=== PATIENT | female | born 1995 | race African-American/Black ===

== ENCOUNTER 2016-05-29 23:39 | Emergency (ER) | payer BC, MEDICAID ==
[2016-05-30] MEDS ORDERED: oxyCODONE/Acetamin 5/325 MG* TAB PO ONE (00:10)
[2016-05-30] MEDS ORDERED: Clindamycin 900 MG/D5W BAG(*) 50 ML IVPB ONE (00:10)
[2016-05-30 00:23] VITALS: BP 131/87
[2016-05-30 00:52] LABS: Hematocrit 44 % (35-47); Hemoglobin 14.7 g/dl (12.0-16.0); Mean Corpuscular HGB Conc 33 g/dl (31-36); Mean Corpuscular Hemoglobin 30 pg (27-31); Mean Corpuscular Volume 90 fL (80-97); Mean Platelet Volume 9 um3 (7.4-10.4); Red Blood Count 4.95 10^6/ul (4.0-5.4); Red Cell Distribution Width 15 % (10.5-15); White Blood Count 13.7 10^3/ul (3.5-10.8)
[2016-05-30 01:04] LABS: BUN/Creatinine Ratio 17.1 (8-20); Calcium 9.4 mg/dL (8.6-10.3); EGFR African American 112.1 (>60); EGFR Non-African American 87.2 (>60); Globulin 2.9 g/dL (2-4); Total Bilirubin 0.3 mg/dL (0.2-1.0); Total Protein 6.9 g/dL (6.4-8.9)
[2016-05-30] MEDS ORDERED: NS 0.9% 1000 ML* 1,000 ML IV ONE (01:13)
[2016-05-30] MEDS: oxyCODONE/Acetamin 5/325 MG* TAB PO ONE ×2 (01:51→02:09)
[2016-05-30] MEDS: Clindamycin CAP* 150 MG PO ONE ×2 (01:51→02:09)
--- NOTE | 2016-05-30 06:32 | ED ---
Daniella Schmitt Michael, scribed for Cristino Palencia MD on 05/30/16 at 0016 . Complex/Multi-Sys Presentation - HPI Summary HPI Summary: 20 y/o female was BIBA to the ED for possible medication reaction resulting in a panic attack. The pt reports that she took 4 Naproxen at 2230 and called [facility] because of possible reaction from the Naproxen with her depression medication. She was told to contact poison control but was unable to contact them, so she came to the ED. The pt also c/o dental pain on the number one tooth for the past 2 months. The dental pain is described as pressure and radiates to the right side of her face and head. She has been unable to schedule an appointment with her dentist. The PMHx is significant for depression. Her LNMP started on . IF THERE IS ONE, PLEASE SEE DICTATION BY DR. PALENCIA FOR FURTHER INFORMATION - History Of Current Complaint Time Seen by Provider: 05/29/16 23:54 Hx Obtained From: Patient, EMS, Medical Records Onset/Duration: Sudden Onset, Lasting Weeks - 2 months, Still Present Timing: Constant Severity Currently: Moderate Severity Initially: Moderate Location: Pain At: - 1st tooth Character: Pressure Associated Signs And Symptoms: Positive: Other - dental pain.. Negative: Fever - Allergies/Home Medications Allergies/Adverse Reactions: Allergies Allergy/AdvReac Type Severity Reaction Status Date / Time Gabapentin Allergy Intermediate Rash Verified 05/30/16 00:21 SEASONAL Allergy Mild Congestion Uncoded 05/30/16 00:21 PMH/Surg Hx/FS Hx/Imm Hx Endocrine/Hematology History: Denies: Hx Anticoagulant Therapy, Hx Diabetes, Hx Thyroid Disease Cardiovascular History: Denies: Hx Congestive Heart Failure, Hx Hypertension Respiratory History: Denies: Hx Asthma, Hx Chronic Bronchitis, Hx Chronic Obstructive Pulmonary Disease (COPD), Hx Pneumonia GI History: Denies: Hx Ulcer History: Denies: Hx Dialysis, Hx Renal Disease Musculoskeletal History: Reports: Hx Bursitis - right shoulder Psychiatric History: Reports: Hx Depression, Hx Post Traumatic Stress Disorder, Hx Bipolar Disorder, Hx Suicide Attempt - Cancer History Cancer Type, Location and Year: abnormal pap in past - Surgical History Surgery Procedure, Year, and Place: C SECTION September 2011 Hx Anesthesia Reactions: No Infectious Disease History: Denies: Hx Hepatitis, Hx Human Immunodeficiency Virus (HIV), History Other Infectious Disease, Traveled Outside the [place] in Last 30 Days - Family History Known Family History: Positive: Hypertension, Diabetes - Social History Occupation: Unemployed Lives: With Family Alcohol Use: Weekly Alcohol Amount: 3 beers 3x per week Substance Use Type: Reports: Prescribed Substance Use Comment - Amount & Last Used: took 10-100mg tabs seroquel Smoking Status (MU): Current Every Day Smoker Type: Cigarettes Amount Used/How Often: 1/2 ppd Review of Systems Negative: Fever Positive: Dental Pain All Other Systems Reviewed And Are Negative: Yes Physical Exam - Summary Physical Exam Summary: GENERAL EXAM GENERAL: Awake, alert, oriented, no acute distress, very pleasant HEENT: Head is normocephalipolc, atraumatic, anicteric sclera, clear conjunctiva , mucous membranes moist, no erythema, no discharge, no lesions, neck is supple , trachea is midline, no JVD CARDIAC: Regular rate and rhythm, S1, S2, no rub, no murmur, no gallop, 2+ radial and pedal pulses bilaterally RESPIRATORY: Clear to auscultation bilaterally with no rales, rhonchi, or wheezes, non-tender ABDOMEN: Bowel sounds positive, no bruit, soft, non-tender, no CVA tenderness EXTREMITIES: No edema, warm, dry, moving all extremities in a grossly normal manner NEUROLOGICAL: Mood is appropriate, moving all extremities in a grossly normal manner DENTAL: number one tooth fracture. unable to determine severity of fracture Triage Information Reviewed: Yes Vital Signs Reviewed: Yes Diagnostics - Laboratory Result Diagrams: 05/30/16 00:35 05/30/16 00:35 Lab Statement: Any lab studies that have been ordered have been reviewed, and results considered in the medical decision making process. Complex Multi-Symp Course/Dx - Diagnoses Provider Diagnoses: dental pain-with fracture number 1 tooth Discharge - Discharge Plan Condition: Stable Disposition: HOME Prescriptions: Clindamycin CAP* [Cleocin 150 MG CAP*] 300 mg PO QID #40 cap oxyCODONE/Acetamin 5/325 MG* [Percocet 5/325 TAB*] 1 tab PO Q4H PRN #15 tab MDD 4 PRN Reason: Pain Patient Education Materials: Toothache (ED) Referrals: Linda Blanc MD [Primary Care Provider] - Additional Instructions: You will follow up with your dentist within the next 2 days. PLEASE RETURN TO THE EMERGENCY DEPARTMENT FOR NAUSEA, VOMITING, FEVER, PHOTOPHOBIA, CHEST PAIN, OR IF SYMPTOMS WORSEN. The documentation as recorded by the Daniella jeffries Michael accurately reflects the service I personally performed and the decisions made by me, Crisitno Palencia MD.
== END 2016-05-30 02:10 | disposition home or self-care (01) ==
LOC: ED 23:39
DX: F41.0 Panic disorder [episodic paroxysmal anxiety] (principal); K08.89 Other specified disorders of teeth and supporting structures; F17.210 Nicotine dependence, cigarettes, uncomplicated; K03.81 Cracked tooth
CPT/HCPCS: 36415; 80053; 85025; 96365; 99283; A9270-GY

== ENCOUNTER 2017-01-15 10:47 | Emergency (ER) | payer BC, MEDICAID ==
[2017-01-15] MEDS ORDERED: Ketorolac INJ* 30 MG/ML 1 ML VIAL IV ONE (12:10)
[2017-01-15] MEDS ORDERED: NS 0.9% 1000 ML* 1,000 ML IV ONE (12:10)
[2017-01-15 13:11] LABS: Hematocrit 49 % (35-47); Mean Corpuscular HGB Conc 34 g/dl (31-36); Mean Corpuscular Hemoglobin 32 pg (27-31); Mean Corpuscular Volume 93 fL (80-97); Mean Platelet Volume 8 um3 (7.4-10.4); Red Blood Count 5.34 10^6/ul (4.0-5.4); Red Cell Distribution Width 15 % (10.5-15); White Blood Count 10.6 10^3/ul (3.5-10.8)
--- NOTE | 2017-01-15 13:16 | RAD ---
Indication: Ovarian cysts. Real-time sonography of the pelvis was performed. The uterus measures 7.1 x 3.1 x 4.2 cm. Endometrial echo measures 2 mm. The right ovary measures 3.4 x 1.7 x 2.9 cm. The left ovary measures 3.5 x 1.7 x 2.9 cm. No adnexal masses are noted. IMPRESSION: Unremarkable pelvic ultrasound.
[2017-01-15 13:25] LABS: ALT 18 U/L (7-52); AST 19 U/L (13-39); Albumin 4.1 g/dL (3.2-5.2); Alkaline Phosphatase 79 U/L (34-104); Anion Gap 8 mmol/L (2-11); BUN/Creatinine Ratio 8.6 (8-20); Blood Urea Nitrogen 6 mg/dL (6-24); C Reactive Protein 10.05 mg/L (< 5.00); CO2 Carbon Dioxide 26 mmol/L (22-32); Calcium 9.4 mg/dL (8.6-10.3); Chloride 105 mmol/L (101-111); EGFR African American 133.4 (>60); EGFR Non-African American 103.7 (>60); Globulin 2.9 g/dL (2-4); Glucose 99 mg/dL (70-100); Potassium 3.7 mmol/L (3.5-5.0); Sodium 139 mmol/L (133-145)
[2017-01-15 14:46] LABS: Urine Bacteria Absent (Absent); Urine Bilirubin Negative (Negative); Urine Glucose Negative (Negative); Urine Nitrite Negative (Negative)
[2017-01-15 15:19] VITALS: BP 119/73
--- NOTE | 2017-02-01 02:49 | ED ---
Odell Schmitt Thomas, scribed for Nikkie Ryan MD on 01/15/17 at 1204 . Complex/Multi-Sys Presentation - HPI Summary HPI Summary: The pt is a 21 y/o F presenting to the ED with concerns that her control implant in her left arm has broken. She believes that the implant is broken because it no longer feels as it did when it was implanted in 12/2015. She has not had a period in 3-4 months and before then she had intermittent vaginal bleeding. She also complaints of abdominal pain described as cramping that began a month ago. She has this cramping in the ED. The pain is greater in the RLQ and it is described as pressure in the LLQ. The pain has been intermittent since onset; however, it became constant and worsened four days ago. The patient reports that she felt a big huge pop a few days ago. The pain is rated 8/10. The pain is aggravated and alleviated by nothing. The patient has treated the pain with nothing prior to arrival. Pt additionally c/o a burning sensation in her right arm (onset a month ago), parasthesias in her right arm, vaginal bleeding (none in the ED although some five months ago, which was concurrent with an episode of abdominal cramping). She denies N/V/D. She has not done any home tests. She says that she has been having intercourse and that she could be . PMHx: ovarian cysts. PSHx: C- section. SHx: smoking, weekly alcohol use. FHx: DM, HTN. G=1, P=1 (via C- Section 5 years ago). - History Of Current Complaint Chief Complaint: EDGeneral Hx Obtained From: Patient Onset/Duration: Gradual Onset, Lasting Weeks - one month, Worse Since - 4 days ago Timing: Constant - since 4 days ago, Intermittent, Lasting: - intermittent until 4 days ago Severity Currently: Moderate Severity Initially: Moderate Location: Pain At: - greatest at RLQ and pressure in LLQ Character: Pressure - in LLQ Aggravating Factor(s): nothing Alleviating Factor(s): nothing Associated Signs And Symptoms: Positive: Abdominal Pain - greatest RLQ but also present in LLQ, Other - POS: burning sensation in right arm, vaginal bleeding ( none in ED although some 5 months ago) parasthesias in right arm. Negative: Nausea, Vomiting, Diarrhea, Fever Related History: Similar Episode/Diagnosed As: - ovarian cysts - Allergies/Home Medications Allergies/Adverse Reactions: Allergies Allergy/AdvReac Type Severity Reaction Status Date / Time Gabapentin Allergy Intermediate Rash Verified 05/30/16 00:21 SEASONAL Allergy Mild Congestion Uncoded 05/30/16 00:21 PMH/Surg Hx/FS Hx/Imm Hx Previously Healthy: No Endocrine/Hematology History: Denies: Hx Anticoagulant Therapy, Hx Diabetes, Hx Thyroid Disease Cardiovascular History: Denies: Hx Congestive Heart Failure, Hx Hypertension Respiratory History: Denies: Hx Asthma, Hx Chronic Bronchitis, Hx Chronic Obstructive Pulmonary Disease (COPD), Hx Pneumonia GI History: Denies: Hx Ulcer History: Reports: Other Problems/Disorders - Hx ovarian cyst Denies: Hx Dialysis, Hx Renal Disease Musculoskeletal History: Reports: Hx Bursitis - right shoulder Psychiatric History: Reports: Hx Depression, Hx Post Traumatic Stress Disorder, Hx Bipolar Disorder, Hx Suicide Attempt - Cancer History Cancer Type, Location and Year: abnormal pap in past - Surgical History Surgery Procedure, Year, and Place: C SECTION September 2011 Hx Anesthesia Reactions: No - Immunization History Date of Tetanus Vaccine: unk Date of Influenza Vaccine: unk Infectious Disease History: Denies: Hx Hepatitis, Hx Human Immunodeficiency Virus (HIV), History Other Infectious Disease, Traveled Outside the [place] in Last 30 Days - Family History Known Family History: Positive: Hypertension, Diabetes - Social History Alcohol Use: Weekly Alcohol Amount: 3 beers 3x per week Substance Use Type: Reports: None Smoking Status (MU): Current Every Day Smoker Type: Cigarettes Amount Used/How Often: 1/2 ppd Review of Systems Negative: Fever Cardiovascular: Negative Respiratory: Negative Positive: Abdominal Pain - described as cramping, onset a month ago but worse 4 days ago, worst in RLQ but also a pressure in the LLQ. Negative: Vomiting, Diarrhea, Nausea Positive: other - POS: intermittent vaginal bleeding (none in the ED although some 5 months ago). Negative: burning Positive: Other - POS: concerns that control implant is broken, in her left arm Neurological: Other - POS: burning sensation in right arm (onset a month ago) Positive: Paresthesia - in right arm (onset a month ago) Psychological: Normal All Other Systems Reviewed And Are Negative: Yes Physical Exam Triage Information Reviewed: Yes Vital Signs On Initial Exam: Initial Vitals Temp Pulse Resp BP Pulse Ox 98.5 F 94 18 144/82 99 01/15/17 10:49 01/15/17 10:49 01/15/17 10:49 01/15/17 10:49 01/15/17 10:49 Vital Signs Reviewed: Yes Appearance: Positive: Well-Appearing, Well-Nourished, Pain Distress - 8/10 pain Skin: Positive: Warm, Skin Color Reflects Adequate Perfusion Head/Face: Positive: Normal Head/Face Inspection Eyes: Positive: Conjunctiva Clear ENT: Positive: Normal ENT inspection Neck: Positive: Supple Respiratory/Lung Sounds: Positive: Clear to Auscultation, Breath Sounds Present , Other - No respiratory distress Cardiovascular: Positive: RRR, Pulses are Symmetrical in both Upper and Lower Extremities, Other - Brisk cap refill. Negative: Murmur Abdomen Description: Positive: Nontender, No Organomegaly, Soft. Negative: Bruit, CVA Tenderness (R), CVA Tenderness (L), Distended, Guarding, Hepatomegaly , McBurney's Point Tenderness, Peritoneal Signs, Pulsatile Mass, Splenomegaly Bowel Sounds: Positive: Present Pelvic Exam: Positive: other - pt declines pelvic exam Musculoskeletal: Positive: Strength/ROM Intact Neurological: Positive: Sensory/Motor Intact, Alert, Oriented to Person Place, Time, Facial Symmetry, Speech Normal Psychiatric: Positive: Normal Diagnostics - Vital Signs Vital Signs Temp Pulse Resp BP Pulse Ox 01/15/17 10:49 98.5 F 94 18 144/82 99 - Laboratory Lab Results: Lab Results 01/15/17 01/15/17 01/15/17 Range/Units 12:58 12:58 12:58 WBC 10.6 (3.5-10.8) 10^3/ul RBC 5.34 (4.0-5.4) 10^6/ul Hgb 17.0 H (12.0-16.0) g/dl Hct 49 H (35-47) % MCV 93 (80-97) fL MCH 32 H (27-31) pg MCHC 34 (31-36) g/dl RDW 15 (10.5-15) % Plt Count 260 (150-450) 10^3/ul MPV 8 (7.4-10.4) um3 Neut % (Auto) 76.7 (38-83) % Lymph % (Auto) 15.7 L (25-47) % [place] % (Auto) 6.3 (1-9) % Eos % (Auto) 0.9 (0-6) % Baso % (Auto) 0.4 (0-2) % Absolute Neuts (auto) 8.2 H (1.5-7.7) 10^3/ul Absolute Lymphs (auto) 1.7 (1.0-4.8) 10^3/ul Absolute Monos (auto) 0.7 (0-0.8) 10^3/ul Absolute Eos (auto) 0.1 (0-0.6) 10^3/ul Absolute Basos (auto) 0 (0-0.2) 10^3/ul Absolute Nucleated RBC 0.01 10^3/ul Nucleated RBC % 0.1 Sodium 139 (133-145) mmol/L Potassium 3.7 (3.5-5.0) mmol/L Chloride 105 (101-111) mmol/L Carbon Dioxide 26 (22-32) mmol/L Anion Gap 8 (2-11) mmol/L BUN 6 (6-24) mg/dL Creatinine 0.70 (0.51-0.95) mg/dL Est GFR ( Amer) 133.4 (>60) Est GFR (Non-Af Amer) 103.7 (>60) BUN/Creatinine Ratio 8.6 (8-20) Glucose 99 (70-100) mg/dL Lactic Acid 1.2 (0.5-2.0) mmol/L Calcium 9.4 (8.6-10.3) mg/dL Total Bilirubin 0.80 (0.2-1.0) mg/dL AST 19 (13-39) U/L ALT 18 (7-52) U/L Alkaline Phosphatase 79 (34-104) U/L C-Reactive Protein 10.05 H (< 5.00) mg/L Total Protein 7.0 (6.4-8.9) g/dL Albumin 4.1 (3.2-5.2) g/dL Globulin 2.9 (2-4) g/dL Albumin/Globulin Ratio 1.4 (1-3) Beta HCG, Quant < 0.60 mIU/mL Result Diagrams: 01/15/17 12:58 01/15/17 12:58 Lab Statement: Any lab studies that have been ordered have been reviewed, and results considered in the medical decision making process. - Additional Comments Diagnostic Additional Comments: US Transvaginal. Interpreted by Radiologist. Impression: unremarkable pelvic ultrasound. ED physician has reviewed this radiology report and agrees. Re-Evaluation - Re-Evaluation First Eval Re-Evaluation Time: 14:20 Change: Improved - pain is a 2 or 3 after toradol IV. discussed lab and US results. IV x 1 liter infused. Pt ambulatory to the BR without assistance. Second Eval Re-Evaluation Time: 14:59 Change: Improved Comment: Patient has 0/10 pain and she denies vaginal bleeding Complex Multi-Symp Course/Dx Assessment/Plan: The patient presents with concerns that her control implant has become dislodged as well as abdominal cramping greatest in RLQ but also in her LLQ. She also complaints of a burning sensation in her right arm, parasthesias in her right arm, and vaginal bleeding 5 months ago. G=1, P=1. In the ED course the patient was given IV fluids and Toradol. Bloodwork shows Hgb 17, Hct 48, CRP 10.05. UA shows 1+ ketones, 1+ blood, trace leukocyte esterase, and 1+ squamous cells. US Transvaginal reveals unremarkable pelvic ultrasound. ED physician has reviewed this radiology report and agrees. At re-evaluation, patient has 0/10 pain and she denies vaginal bleeding. The patient was diagnosed with abdominal pain. The patient will be discharged home with follow up PCP and ANDREINA Shaikh. Pt is agreeable with this plan. - Diagnoses Differential Diagnoses/HQI/PQRI: Metabolic Abnormality, Urinary Tract Infection , Other - ovarian cyst Provider Diagnoses: Abdominal pain, Paresthesia of right arm Is Visit Related: No - pt concerned about the control implant in her left arm - Physician Notifications Discussed Care Of Patient With: Isidoro Garcia Time Discussed With Above Provider: 13:49 Instructed by Provider To: Other - We discussed patient care. He will see the patient at a follow up at his office. Discharge - Discharge Plan Condition: Stable Disposition: HOME Patient Education Materials: Abdominal Pain (ED) Referrals: Isaías Garcia MD [Medical Doctor] - 1 Week Linda Blanc MD [Primary Care Provider] - Additional Instructions: We have talked with Dr. Garcia about your implant in your left arm. He states that this can be removed by them. Please call his office to schedule an appointment for this and for further evaluation of your abdominal cramping and your history of ovarian cysts. We have sent your urine for a culture. We will notify you if you need further treatment based on those results. Return to the ER if you have new or worsening symptoms. The documentation as recorded by the Odell jeffries Thomas accurately reflects the service I personally performed and the decisions made by me, Nikkie Ryan MD.
== END 2017-01-15 15:31 | disposition home or self-care (01) ==
LOC: ED 10:47
DX: R10.31 Right lower quadrant pain (principal); F17.210 Nicotine dependence, cigarettes, uncomplicated; R20.9 Unspecified disturbances of skin sensation
CPT/HCPCS: 36415; 76830; 80053; 81003; 81015; 83605; 84702; 85025; 86140; 87086; 96374; 99282; J1885

== ENCOUNTER 2017-04-27 19:25 | Emergency (ER) | payer BC, MEDICAID ==
[2017-04-27 20:23] LABS: Urine Bacteria Absent (Absent); Urine Bilirubin Negative (Negative); Urine Glucose Negative (Negative); Urine Nitrite Negative (Negative)
[2017-04-27 20:26] LABS: Benzodiazepine Urine Screen None Detected (None Detect)
[2017-04-27 21:03] LABS: Hematocrit 46 % (35-47); Hemoglobin 15.4 g/dl (12.0-16.0); Mean Corpuscular HGB Conc 33 g/dl (31-36); Mean Corpuscular Hemoglobin 31 pg (27-31); Mean Corpuscular Volume 93 fL (80-97); Mean Platelet Volume 8 um3 (7.4-10.4); Red Blood Count 4.97 10^6/ul (4.0-5.4); Red Cell Distribution Width 16 % (10.5-15); White Blood Count 9.9 10^3/ul (3.5-10.8)
[2017-04-27 21:20] LABS: ALT 15 U/L (7-52); AST 17 U/L (13-39); Albumin 4.1 g/dL (3.2-5.2); Alkaline Phosphatase 59 U/L (34-104); Anion Gap 6 mmol/L (2-11); BUN/Creatinine Ratio 15.9 (8-20); Blood Urea Nitrogen 11 mg/dL (6-24); CO2 Carbon Dioxide 25 mmol/L (22-32); Calcium 9.3 mg/dL (8.6-10.3); Chloride 106 mmol/L (101-111); EGFR African American 135.6 (>60); EGFR Non-African American 105.4 (>60); Globulin 2.7 g/dL (2-4); Glucose 92 mg/dL (70-100); Potassium 3.9 mmol/L (3.5-5.0); Sodium 137 mmol/L (133-145); Total Protein 6.8 g/dL (6.4-8.9)
[2017-04-27 21:28] LABS: Acetaminophen < 15 mcg/mL; Alcohol < 10 mg/dL (<10); Salicylate < 2.50 mg/dL (<30)
--- NOTE | 2017-04-27 22:12 | ED ---
Bradford Schmitt Julia, scribed for Alex Landeros MD on 04/27/17 at 2044 . Psychiatric Complaint - HPI Summary HPI Summary: This patient is a 21 year old F presenting to [facility] accompanied by her brother with a chief complaint of "Bipolar symptoms" worse since earlier today. Patient states that she stopped taking her medication about a year ago. She made an appointment with her counselor recently but cannot be seen until June. Patient reports chest pains secondary to anxiety. - History Of Current Complaint Chief Complaint: EDMentalHealth Time Seen by Provider: 04/27/17 20:05 Hx Obtained From: Patient Onset/Duration: Gradual Onset, Still Present, Worse Since Timing: Constant Character: Anxious Related History: Positive For: Prior Psychiatric Issues - Allergies/Home Medications Allergies/Adverse Reactions: Allergies Allergy/AdvReac Type Severity Reaction Status Date / Time Gabapentin Allergy Intermediate Rash Verified 04/27/17 19:36 SEASONAL Allergy Mild Congestion Uncoded 04/27/17 19:36 PMH/Surg Hx/FS Hx/Imm Hx Endocrine/Hematology History: Denies: Hx Anticoagulant Therapy, Hx Diabetes, Hx Thyroid Disease Cardiovascular History: Denies: Hx Congestive Heart Failure, Hx Hypertension Respiratory History: Denies: Hx Asthma, Hx Chronic Bronchitis, Hx Chronic Obstructive Pulmonary Disease (COPD), Hx Pneumonia GI History: Denies: Hx Ulcer History: Reports: Other Problems/Disorders - Hx ovarian cyst Denies: Hx Dialysis, Hx Renal Disease Musculoskeletal History: Reports: Hx Bursitis - right shoulder Psychiatric History: Reports: Hx Depression, Hx Post Traumatic Stress Disorder, Hx Bipolar Disorder, Hx Suicide Attempt - Cancer History Cancer Type, Location and Year: abnormal pap in past - Surgical History Surgery Procedure, Year, and Place: C SECTION September 2011 Hx Anesthesia Reactions: No - Immunization History Date of Tetanus Vaccine: unk Date of Influenza Vaccine: unk Infectious Disease History: No Infectious Disease History: Denies: Hx Hepatitis, Hx Human Immunodeficiency Virus (HIV), History Other Infectious Disease, Traveled Outside the [place] in Last 30 Days - Family History Known Family History: Positive: Hypertension, Diabetes - Social History Alcohol Use: Weekly Alcohol Amount: 3 beers 3x per week Hx Substance Use: No Substance Use Type: Reports: None Substance Use Comment - Amount & Last Used: took 10-100mg tabs seroquel Hx Tobacco Use: Yes Smoking Status (MU): Current Every Day Smoker Type: Cigarettes Amount Used/How Often: 1/2 ppd Review of Systems Negative: Fever Positive: Chest Pain - secondary to stress Psychological: Other - "bipolar sx" Positive: Anxious All Other Systems Reviewed And Are Negative: Yes Physical Exam - Summary Physical Exam Summary: Appearance: The patient is well-nourished in no acute distress and in no acute pain. Skin: The skin is warm and dry and skin color reflects adequate perfusion. HEENT: The head is normocephalic and atraumatic. The pupils are equal and reactive. The conjunctivae are clear and without drainage. Nares are patent and without drainage. Mouth reveals moist mucous membranes and the throat is without erythema and exudate. The external ears are intact. The ear canals are patent and without drainage. The tympanic membranes are intact. Neck: the neck is supple with full range of motion and non-tender. There are no carotid bruits. There is no neck vein distension. Respiratory: Chest is non-tender. Lungs are clear to auscultation and breath sounds are symmetrical and equal. Cardiovascular: Heart is regular rate and rhythm. There is no murmur or rub auscultated. There is no peripheral edema and pulses are symmetrical and equal. Abdomen: The abdomen is soft and non-tender. There are normal bowel sounds heard in all four quadrants and there is no organomegaly palpated. Musculoskeletal: There is no back tenderness noted. Extremities are non-tender with full range of motion. There is good capillary refill. There is no peripheral edema or calf tenderness elicited. Neurological: Patient is alert and oriented to person, place and time. The patient has symmetrical motor strength in all four extremities. Cranial nerves are grossly intact. Deep tendon reflexes are symmetrical and equal in all four extremities. Psychiatric: The patient has an appropriate affect and does not exhibit any anxiety or depression. Triage Information Reviewed: Yes Vital Signs On Initial Exam: Initial Vitals Temp Pulse Resp BP Pulse Ox 98.1 F 97 16 142/99 100 04/27/17 19:30 04/27/17 19:30 04/27/17 19:30 04/27/17 19:30 04/27/17 19:30 Vital Signs Reviewed: Yes Diagnostics - Vital Signs Vital Signs Temp Pulse Resp BP Pulse Ox 04/27/17 19:30 98.1 F 97 16 142/99 100 - Laboratory Lab Results: Lab Results 04/27/17 04/27/17 Range/Units 19:53 19:53 Urine Color Yellow Urine Appearance Clear Urine pH 5.0 (5-9) Ur Specific [place] 1.016 (1.010-1.030) Urine Protein Negative (Negative) Urine Ketones Negative (Negative) Urine Blood 3+ H (Negative) Urine Nitrate Negative (Negative) Urine Bilirubin Negative (Negative) Urine Urobilinogen Negative (Negative) Ur Leukocyte Esterase Trace H (Negative) Urine WBC (Auto) 1+(6-10/hpf) H (Absent) Urine RBC (Auto) 1+(3-5/hpf) H (Absent) Ur Squamous Epith Cells Present H (Absent) Urine Bacteria Absent (Absent) Urine Glucose Negative (Negative) Urine Opiates Screen None detected (None Detect) Ur Barbiturates Screen None detected (None Detect) Ur Phencyclidine Scrn None detected (None Detect) Ur Amphetamines Screen None detected (None Detect) U Benzodiazepines Scrn None detected (None Detect) Urine Cocaine Screen None detected (None Detect) U Cannabinoids Screen Presumptive positive H (None Detect) Result Diagrams: 04/27/17 20:45 04/27/17 20:45 Lab Statement: Any lab studies that have been ordered have been reviewed, and results considered in the medical decision making process. Course/Dx - Course Course Of Treatment: Ms. Selby is here on a voluntary basis for a MHE. She is medically cleared and in the Flex Unit. - Differential Dx/Clinical Impression Provider Diagnosis: Bipolar 1 disorder Discharge - Discharge Plan Condition: Stable Disposition: OTHER Discharge Disposition Comment: Signed out to Dr. Márquez at change of shift Referrals: Linda Blanc MD [Primary Care Provider] - The documentation as recorded by the Bradford jeffries Julia accurately reflects the service I personally performed and the decisions made by , Alex Landeros MD.
[2017-04-27 23:29] VITALS: BP 122/74
--- NOTE | 2017-04-28 04:32 | PN ---
Katerina Schmitt Emily, scribed for Roxana Márquez MD on 04/27/17 at 2314 . Progress Note - Progress Note Date of Service: 04/27/17 Note: SIGN-OFF FROM DR. DE LA TORRE UPON SHIFT CHANGE PENDING MHE DISPO: Pt is stable for discharge home with a prescription for zyprexa and a dx of depression. The documentation as recorded by the scribKaterina stewart Emily accurately reflects the service I personally performed and the decisions made by , Roxana Márquez MD.
== END 2017-04-27 23:25 | disposition home or self-care (01) ==
LOC: ED 19:25
DX: F31.9 Bipolar disorder, unspecified (principal); R07.89 Other chest pain; Z32.02 Encounter for pregnancy test, result negative; Z11.4 Encounter for screening for human immunodeficiency virus [HIV]; F17.210 Nicotine dependence, cigarettes, uncomplicated
CPT/HCPCS: 36415; 80053; 80307; 80320; 80329; 81003; 81015; 84443; 84702; 85025; 86703; 87086; 99283; 99284; G0480

== ENCOUNTER 2017-06-24 10:31 | Emergency (ER) | payer BC, MEDICAID ==
[2017-06-24] MEDS ORDERED: cefTRIAXone(*) 2 GM in NS 0.9% 100 ML* 100 ML IVPB ONE (12:29)
--- NOTE | 2017-06-24 12:29 | UC ---
HPI Febrile Illness - HPI Summary HPI Summary: 21 yo BF c/p moderate to severe sore throat,and B/L back pain that started yesterday AM associated with f/c and now feels worse. Daughter at home was also sick with pharyngitis. Denies dysuria, urinary frequency and urgency but has had suprapubic pain x 1-2 weeks before the back pain started - History of Current Complaint Chief Complaint: UCGeneralIllness Time Seen by Provider: 06/24/17 12:17 Hx Obtained From: Patient Hx Last Menstrual Period: 2 weeks Onset/Duration: Still Present Timing: Constant Initial Severity: Moderate Current Severity: Moderate Pain Intensity: 8 - Allergy/Home Medications Allergies/Adverse Reactions: Allergies Allergy/AdvReac Type Severity Reaction Status Date / Time MS Gabapentin [Gabapentin] Allergy Intermediate Rash Verified 06/24/17 11:01 SEASONAL Allergy Mild Congestion Uncoded 06/24/17 11:01 Home Medications: Home Medications Budesonide/Formote 80/4.5(NF) [Symbicort 80/4.5 (NF)] 2 puff INH DAILY 06/24/17 [History Confirmed 06/24/17] PMH/Surg Hx/FS Hx/Imm Hx - Additional Past Medical History Additional PMH: none Previously Healthy: No Other History Of: Negative For: Anticoagulant Therapy - Surgical History Surgical History: Yes Surgery Procedure, Year, and Place: C SECTION September 2011 - Family History Known Family History: Positive: Unknown, Hypertension, Diabetes - Social History Alcohol Use: Weekly Alcohol Amount: 3 beers 3x per week Substance Use Type: None Substance Use Comment - Amount & Last Used: took 10-100mg tabs seroquel Smoking Status (MU): Light Every Day Tobacco Smoker Type: Cigarettes Amount Used/How Often: 1/2 ppd - Immunization History Most Recent Influenza Vaccination: "a couple years ago". Most Recent Tetanus Shot: utd Most Recent Pneumonia Vaccination: never Review of Systems Constitutional: Fever, Chills, Fatigue Skin: Negative Eyes: Negative Respiratory: Negative Cardiovascular: Negative Gastrointestinal: Negative Genitourinary: Negative Motor: Negative Neurovascular: Negative Musculoskeletal: Other: - LBP Neurological: Negative Psychological: Negative Is Patient Immunocompromised?: Yes All Other Systems Reviewed And Are Negative: Yes Physical Exam Triage Information Reviewed: Yes Appearance: Pain Distress, Obese Vital Signs: Initial Vital Signs Temp 36.9 C 06/24/17 10:54 Pulse 104 06/24/17 10:54 Resp 16 06/24/17 10:54 BP 118/81 06/24/17 10:54 Pulse Ox 100 06/24/17 10:54 Eye Exam: Normal ENT Exam: Normal ENT: Positive: Tonsillar swelling, Tonsillar exudate - with faint exudates B/L Dental Exam: Normal Neck exam: Normal Neck: Positive: 1 Respiratory Exam: Normal Cardiovascular Exam: Normal Abdomen Description: Positive: Soft, CVA Tenderness (R), CVA Tenderness (L) Musculoskeletal Exam: Normal Neurological Exam: Normal Psychological Exam: Normal Skin Exam: Normal Course/Dx - Course Course Of Treatment: rapid strep neg, UA with Blood 1+ and in light of CVA tenderness, will tx with one time dose of IV rocephin and 1 L IVF NS BUT pt refused the intervention due to ride issue, so prescribe PO Bactrim instead and to go to ER if sx worsen - Diagnoses Clinic Provider Diagnoses: Exudative pharyngitis. B/L pyelonephritis. Febrile illness Discharge - Discharge Plan Condition: Stable Disposition: HOME Prescriptions: Sulfamethox/Trimethoprim DS* [Bactrim DS 800/160 TAB*] 1 tab PO BID 10 Days #20 tab Patient Education Materials: Pharyngitis (ED), Kidney Infection (ED) Referrals: No Primary Care Phys,NOPCP [Primary Care Provider] - Additional Instructions: as tolerated, Finish antibiotic course as directed
[2017-06-24] MEDS ORDERED: NS 0.9% 1000 ML* 1,000 ML IV ONE (12:33)
[2017-06-24] MEDS ORDERED: cefTRIAXone VIAL(*) 1,000 MG VIAL ONE (12:36)
[2017-06-24 12:49] VITALS: BP 112/82
== END 2017-06-24 12:52 | disposition home or self-care (01) ==
LOC: UCEAST 10:31
DX: J02.9 Acute pharyngitis, unspecified (principal); I80.8 Phlebitis and thrombophlebitis of other sites; R50.9 Fever, unspecified; F17.210 Nicotine dependence, cigarettes, uncomplicated
CPT/HCPCS: 81003; 81025; 87651; 99212; G0463; J0696

== ENCOUNTER 2017-10-11 08:31 | Emergency (ER) | payer BC, MEDICAID ==
[2017-10-11 08:40] VITALS: BP 120/81
--- NOTE | 2017-10-11 09:48 | UC ---
Marcie Schmitt Gabriel, scribed for Abel Parker MD on 10/11/17 at 0938 . Throat Pain/Nasal Min HPI - HPI Summary HPI Summary: This patient is a 22 year old F presenting [place] [facility] [place] chief complaint of sore throat that began yesterday when she woke up and has gotten worse since then. The patient rates the pain 6/10 in severity. Patient reports neck pain, trouble swallowing, and myalgia. Patient denies urinary symptoms and BM issues. notes: vital signs stable, afebrile, pulse ox 100%; 6/10 throat pain. Visit history: noncontributory to present complaint. History positive for asthma Nurse note: sore throat started yesterday worsening - History of Current Complaint Chief Complaint: UCGeneralIllness Stated Complaint: THROAT PAIN Time Seen by Provider: 10/11/17 09:27 Hx Obtained From: Patient Hx Last Menstrual Period: 10/07/17 Onset/Duration: Still Present Severity: Moderate Pain Intensity: 6 Pain Scale Used: 0-10 Numeric Associated Signs & Symptoms: Positive: Negative, Other - neck pain and trouble swallowing - Allergies/Home Medications Allergies/Adverse Reactions: Allergies Allergy/AdvReac Type Severity Reaction Status Date / Time gabapentin Allergy Rash Verified 10/11/17 08:40 SEASONAL Allergy Mild Congestion Uncoded 06/24/17 11:01 Home Medications: Home Medications Latuda 60 mg PO DAILY 10/11/17 [History Confirmed 10/11/17] PMH/Surg Hx/FS Hx/Imm Hx Respiratory History: Asthma Psychological History: Depression, Bipolar Disorder Other History Of: Negative For: Anticoagulant Therapy - Surgical History Surgical History: Yes Surgery Procedure, Year, and Place: C SECTION September 2011 - Family History Known Family History: Positive: Hypertension, Diabetes Negative: Renal Disease, Respiratory Disease, Seizure Disorder, Blood Disorder - Social History Occupation: Unemployed Alcohol Use: Weekly Alcohol Amount: 3 beers 3x per week Substance Use Type: Marijuana Substance Use Comment - Amount & Last Used: took 10-100mg tabs seroquel Smoking Status (MU): Light Every Day Tobacco Smoker Type: Cigarettes Amount Used/How Often: 1/2 ppd - Immunization History Most Recent Influenza Vaccination: "a couple years ago". Most Recent Tetanus Shot: utd Most Recent Pneumonia Vaccination: never Review of Systems ENT: Sore Throat, Other - trouble swallowing Musculoskeletal: Myalgia, Other: - neck pain All Other Systems Reviewed And Are Negative: Yes - Comments Additional Review of Systems Comments: Positive: sore throat, neck pain, trouble swallowing, and myalgia. Negative: urinary symptoms and BM issues. Physical Exam - Summary Physical Exam Summary: Appearance: The patient is well-appearing, is in no pain distress, and is well- nourished. Eyes: Conjunctiva are clear. ENT: The hearing is grossly normal and the TMs are normal. PHARYNX: ENLARGED TONSILS WITH ERYTHEMA AND MULTIPLE POCKETS OF EXUDATES Neck: The neck is supple and there is BILATERAL ANTERIOR CERVICAL LYMPHADENOPATHY. Respiratory: The chest is nontender. The lungs are clear, there are normal breath sounds, and there is no respiratory distress. Cardiovascular: Heart is regular rate and rhythm. There is no murmur. Abdomen: The abdomen is soft and nontender. There is no organomegaly. Bowel sounds: present Musculoskeletal: Strength is intact. The patient moves all extremities. Neurological: The patient is alert. Psychological: The patient displays age appropriate behavior Skin: Negative for rashes. Triage Information Reviewed: Yes Vital Signs: Initial Vital Signs Temp 98 F 10/11/17 08:37 Pulse 100 10/11/17 08:37 Resp 18 10/11/17 08:37 BP 120/81 10/11/17 08:37 Pulse Ox 100 10/11/17 08:37 Throat Pain/Nasal Course/Dx - Course Course Of Treatment: Sore throat for 24 hours. Rapid strep is positive. Tonsils are swollen. Will treat with penicillin. Medications have been included in the original chart and reviewed - Differential Dx/Diagnosis Differential Diagnosis/HQI/PQRI: Other - viral pharyngitis vs strep throat Provider Diagnoses: strep tonsillitis Discharge - Sign-Out/Discharge Documenting (check all that apply): Discharge/Admit/Transfer - Discharge Plan Condition: Stable Disposition: HOME Prescriptions: Penicillin VK TAB* [Penicillin VK 250 mg Tab*] 500 mg PO BID #20 tab MDD 2 Patient Education Materials: Strep Throat (ED) Referrals: No Primary Care Phys,NOPCP [Primary Care Provider] - Additional Instructions: WE DISCUSSED: 1. You have strep throat. 2. Take penicillin, twice a day for 10 days. 3. USEFUL HOME REMEDIES: WARM WATER GARGLES, WITH TSP OF SALT PER 8 OUNCES OF WATER, GARGLE FOR A FEW SECONDS AND SPIT OUT; GARGLE AND SPIT OUT; EVERY THREE HOURS. AND/OR: WARM WATER OR TEA, HONEY AND LEMON; 2-3 CUPS A DAY. FOR SORE THROAT: KEEP THROAT MOIST WITH LOZENGES; TEA AND HONEY. USE WARM WATER GARGLES 3-4 TIMES A DAY. 4. Recheck at any time for increased pain, temperature difficulty breathing or swallowing. - Billing Disposition and Condition Condition: STABLE Disposition: Home The documentation as recorded by the Marcie jeffries Gabriel accurately reflects the service I personally performed and the decisions made by , Abel Parker MD.
== END 2017-10-11 09:51 | disposition home or self-care (01) ==
LOC: UCEAST 08:31
DX: J03.00 Acute streptococcal tonsillitis, unspecified (principal); J45.909 Unspecified asthma, uncomplicated; M79.1 Myalgia; F17.210 Nicotine dependence, cigarettes, uncomplicated; Z88.8 Allergy status to other drugs, medicaments and biological substances; Z91.09 Other allergy status, other than to drugs and biological substances
CPT/HCPCS: 87651; 99212; G0463

== ENCOUNTER 2018-02-11 18:46 | Emergency (ER) | payer BC ==
[2018-02-11 19:25] VITALS: BP 110/75
[2018-02-11] MEDS ORDERED: Acetaminophen TAB* 325 MG PO ONE (20:42)
--- NOTE | 2018-02-11 21:23 | UC ---
Abdominal Pain Female HPI - HPI Summary HPI Summary: Pt presents wtih 36 hour progressive urinary urgency, back pain R>L and lower abd cramping. No hematuria. Pt reportw thin white vaginal discharge - no itching , odor. Pt states her menses is late (LMP 01/10/2018) - has taken tests which were neg. Pt with h/o pyelo. no h/o STDs, + h/o BV. No diarrhea. No n/v. No cp, sob. no fever, chills. No h/o renal stones. No analgesia taken. Pt states menses cramping usually "worse" Pt's medications reviewed this visit - History of Current Complaint Chief Complaint: UCAbdominalPain Stated Complaint: ABDOMINAL AND BACK PAIN Time Seen by Provider: 02/11/18 20:30 Hx Obtained From: Patient Hx Last Menstrual Period: 01/09/18 ?: No Onset/Duration: Gradual Onset Pain Intensity: 8 Allergies/Adverse Reactions: Allergies Allergy/AdvReac Type Severity Reaction Status Date / Time gabapentin Allergy Rash Verified 02/11/18 19:26 SEASONAL Allergy Mild Congestion Uncoded 06/24/17 11:01 PMH/Surg Hx/FS Hx/Imm Hx Previously Healthy: Yes Other GI/ History: pyelo Other History Of: Negative For: Anticoagulant Therapy - Surgical History Surgical History: Yes Surgery Procedure, Year, and Place: C SECTION September 2011 - Family History Known Family History: Positive: Unknown, Hypertension, Diabetes Negative: Renal Disease, Respiratory Disease, Seizure Disorder, Blood Disorder - Social History Occupation: Employed Part-time Lives: With Family Alcohol Use: Weekly Alcohol Amount: 3 beers 3x per week Substance Use Type: Marijuana Substance Use Comment - Amount & Last Used: daily Smoking Status (MU): Light Every Day Tobacco Smoker Type: Cigarettes Amount Used/How Often: 1/2 ppd - Immunization History Most Recent Influenza Vaccination: "a couple years ago". Most Recent Tetanus Shot: utd Most Recent Pneumonia Vaccination: never Review of Systems Constitutional: Fatigue Genitourinary: Hematuria, Vaginal/Penile Burning, Vaginal/Penile Discharge All Other Systems Reviewed And Are Negative: Yes Physical Exam - Summary Physical Exam Summary: Vital Signs Reviewed: Yes A+Ox3, no distress, easily change position, climb onto exam table Eyes: Conjunctiva Clear, BULMARO. EOM intact and full ENT: Hearing grossly normal TM x 2 clear, mmoist, uvula midline, no exudate, no erythema Neck: Positive: Supple Respiratory: Positive: No respiratory distress, No accessory muscle use + CTA throughout no w/r Cardiovascular: RRR nl s1, s2 no m/r CBT <2 sec abd soft + BS nt/nd no guarding, no distension no CVA Musculoskeletal Exam: MARIE x 4 without difficulty Strength Intact, ROM Intact Neurological: Positive: Alert, + sensation throughout Psychological: Positive: Normal Response To Family Skin: Positive: no rash, no ecchymosis Triage Information Reviewed: Yes Vital Signs: Initial Vital Signs Temp 98.7 F 02/11/18 19:19 Pulse 94 02/11/18 19:19 Resp 12 02/11/18 19:19 BP 110/75 02/11/18 19:19 Pulse Ox 100 02/11/18 19:19 Re-Evaluation - Re-Evaluation First Eval Comment: notified by nurse, pt left. refused to wait to talk with me. took APAP Abd Pain Female Course/Dx - Course Course Of Treatment: Pt with discomfort flank R>L, lower abd and frequency. Pt' s urine with trace blood. neg. pt well appearing with stable VS. will complete pelvic for report of discharge, CT for renal colic, and apap. pt in agreement with plan - Differential Dx/Diagnosis Provider Diagnoses: elopement. abd pain. vaginal discharge Discharge - Sign-Out/Discharge Documenting (check all that apply): Patient Departure All imaging exams completed and their final reports reviewed: No Studies - Discharge Plan Condition: Stable Disposition: ELOPEMENT Referrals: No Primary Care Phys,NOPCP [Primary Care Provider] - - Billing Disposition and Condition Condition: STABLE Disposition: Elopement
== END 2018-02-11 20:47 | disposition home or self-care (01) ==
LOC: UCEAST 18:46
DX: R10.30 Lower abdominal pain, unspecified (principal); N89.8 Other specified noninflammatory disorders of vagina; R31.9 Hematuria, unspecified; M54.9 Dorsalgia, unspecified; F17.210 Nicotine dependence, cigarettes, uncomplicated; R39.15 Urgency of urination; Z91.09 Other allergy status, other than to drugs and biological substances; Z88.8 Allergy status to other drugs, medicaments and biological substances
CPT/HCPCS: 81003; 84702; 99212; A9270-GY; G0463

== ENCOUNTER 2018-10-09 20:12 | Inpatient (IN) | payer BC ==
[2018-10-09] MEDS ORDERED: Charcoal ACTIVATED* 25 GM/120 ML BTL PO ONE (20:21)
--- NOTE | 2018-10-09 20:22 | ED ---
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 Patient took 49 tablets of 25mg hydroxyzine. Patient has not seen psychiatrist in three months, and she has been feeling helpless. Patient has been trying to do well for herself, but andrei feels like she reached the breaking point of not getting any help. Patient took the pills in front of her mom to prove a point. The patient rates the pain 0/10 in severity. Symptoms aggravated by nothing. Symptoms alleviated by nothing. Patient denies N/V. PMHx of anxiety, depression, bipolar. PSHx of . FHx of HTN, DM. Patient drinks alcohol, smokes marijuana tobacco. - History Of Current Complaint Time Seen by Provider: 10/09/18 20:18 Hx Last Menstrual Period: 01/09/18 - Allergies/Home Medications Allergies/Adverse Reactions: Allergies Allergy/AdvReac Type Severity Reaction Status Date / Time gabapentin Allergy Rash Verified 02/11/18 19:26 SEASONAL Allergy Mild Congestion Uncoded 06/24/17 11:01 PMH/Surg Hx/FS Hx/Imm Hx Endocrine/Hematology History: Denies: Hx Anticoagulant Therapy, Hx Diabetes, Hx Thyroid Disease Cardiovascular History: Denies: Hx Congestive Heart Failure, Hx Hypertension Respiratory History: Reports: Hx Asthma Denies: Hx Chronic Bronchitis, Hx Chronic Obstructive Pulmonary Disease (COPD ), Hx Pneumonia GI History: Denies: Hx Ulcer History: Reports: Other Problems/Disorders - Hx ovarian cyst Denies: Hx Dialysis, Hx Renal Disease Musculoskeletal History: Reports: Hx Bursitis - right shoulder Psychiatric History: Reports: Hx Depression, Hx Post Traumatic Stress Disorder, Hx Bipolar Disorder, Hx Suicide Attempt Denies: Hx Eating Disorder, Hx of Violent Episodes Against Others - Cancer History Cancer Type, Location and Year: abnormal pap in past - Surgical History Surgery Procedure, Year, and Place: C SECTION September 2011 Hx Anesthesia Reactions: No - Immunization History Date of Tetanus Vaccine: unk Date of Influenza Vaccine: unk Infectious Disease History: Denies: Hx Hepatitis, Hx Human Immunodeficiency Virus (HIV), History Other Infectious Disease - Family History Known Family History: Positive: Hypertension, Diabetes Negative: Renal Disease, Respiratory Disease, Seizure Disorder, Blood Disorder - Social History Alcohol Use: Weekly Alcohol Amount: 3 beers 3x per week Hx Substance Use: No Substance Use Type: Reports: Marijuana Substance Use Comment - Amount & Last Used: daily Hx Tobacco Use: Yes Smoking Status (MU): Light Every Day Tobacco Smoker Type: Cigarettes Amount Used/How Often: 1/2 ppd Review of Systems Negative: Vomiting, Nausea Positive: Depressed All Other Systems Reviewed And Are Negative: Yes Physical Exam - Summary Physical Exam Summary: Appearance: Well-appearing, Well-nourished, lying in bed comfortably Skin: Warm, dry, no obvious rash Eyes: sclera anicteric, no conjunctival pallor ENT: mucous membranes moist, pharynx appears normal Neck: Supple, nontender Respiratory: Clear to auscultation, no signs of respiratory distress Cardiovascular: Normal S1, S2. No murmurs. Normal distal pulses in tibial and radial bilaterally. Abdomen: Soft, nontender, normal active bowel sounds present Musculoskeletal: Normal, Strength/ROM Intact Neurological: A&Ox3, awake and alert, mentation is normal, speech is fluent and appropriate Psychiatric: affect is depressed, does not appear anxious or depressed Triage Information Reviewed: Yes Vital Signs Reviewed: Yes Discharge - Discharge Plan Referrals: No Primary Care Phys,NOPCP [Primary Care Provider] - - Attestation Statements Document Initiated by Scribe: Yes Documenting Scribe: Ubaldo Fairbanks Provider For Whom Scribe is Documenting (Include Credential): Alex Lowery MD Scribe Attestation: Ubaldo Schmitt, scribed for Alex Lowery MD on 10/09/18 at 2025.
[2018-10-09] MEDS ORDERED: Ondansetron INJ* 2 MG/ML VIAL IV ONE (20:26)
[2018-10-09] MEDS ORDERED: Charcoal 50 GM/Sorbitol* 50 GM/240 ML BTL PO ONE (20:26)
--- NOTE | 2018-10-09 20:28 | ED ---
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 Patient took 49 tablets of 25mg hydroxyzine. Patient has not seen psychiatrist in three months, and she has been feeling helpless. Patient has been trying to do well for herself, but tonight feels like she reached the breaking point of not getting any help. Patient took the pills in front of her mom to prove a point. The patient rates the pain 0/10 in severity. Symptoms aggravated by nothing. Symptoms alleviated by nothing. Patient denies N/V. PMHx of anxiety, depression, bipolar. PSHx of . FHx of HTN, DM. Patient drinks alcohol, smokes marijuana tobacco. - History Of Current Complaint Chief Complaint: EDSuicidal Stated Complaint: POSSIBLE OVERDOSE PER PT Time Seen by Provider: 10/09/18 20:18 Hx Obtained From: Patient Onset/Duration of Drug/ETOH Abuse: Minutes - 1944 today Ingestion History: Type/Name Of Drug - Hydroxyzine, Amount Ingested - 49 tabs of 25mg, Approximate Time Of Ingestion - 1944 Overdose Characteristics: Oral Character: Depressed Aggravating Factor(s): Nothing Alleviating Factor(s): Nothing Associated Signs And Symptoms: Negative - N/V - Allergies/Home Medications Allergies/Adverse Reactions: Allergies Allergy/AdvReac Type Severity Reaction Status Date / Time gabapentin Allergy Rash Verified 02/11/18 19:26 SEASONAL Allergy Mild Congestion Uncoded 06/24/17 11:01 PMH/Surg Hx/FS Hx/Imm Hx Endocrine/Hematology History: Denies: Hx Anticoagulant Therapy, Hx Diabetes, Hx Thyroid Disease Cardiovascular History: Denies: Hx Congestive Heart Failure, Hx Hypertension Respiratory History: Reports: Hx Asthma Denies: Hx Chronic Bronchitis, Hx Chronic Obstructive Pulmonary Disease (COPD ), Hx Pneumonia GI History: Denies: Hx Ulcer History: Reports: Other Problems/Disorders - Hx ovarian cyst Denies: Hx Dialysis, Hx Renal Disease Musculoskeletal History: Reports: Hx Bursitis - right shoulder Psychiatric History: Reports: Hx Depression, Hx Post Traumatic Stress Disorder, Hx Bipolar Disorder, Hx Suicide Attempt Denies: Hx Eating Disorder, Hx of Violent Episodes Against Others - Cancer History Cancer Type, Location and Year: abnormal pap in past - Surgical History Surgery Procedure, Year, and Place: C SECTION September 2011 Hx Anesthesia Reactions: No - Immunization History Date of Tetanus Vaccine: unk Date of Influenza Vaccine: unk Infectious Disease History: No Infectious Disease History: Denies: Hx Hepatitis, Hx Human Immunodeficiency Virus (HIV), History Other Infectious Disease, Traveled Outside the [place] in Last 30 Days - Family History Known Family History: Positive: Unknown, Hypertension, Diabetes Negative: Renal Disease, Respiratory Disease, Seizure Disorder, Blood Disorder - Social History Alcohol Use: Weekly Alcohol Amount: 3 beers 3x per week Hx Substance Use: No Substance Use Type: Reports: Marijuana Substance Use Comment - Amount & Last Used: daily Hx Tobacco Use: Yes Smoking Status (MU): Light Every Day Tobacco Smoker Type: Cigarettes Amount Used/How Often: 1/2 ppd Review of Systems Negative: Vomiting, Nausea Positive: Depressed All Other Systems Reviewed And Are Negative: Yes Physical Exam - Summary Physical Exam Summary: Appearance: Well-appearing, Well-nourished, lying in bed comfortably Skin: Warm, dry, no obvious rash Eyes: sclera anicteric, no conjunctival pallor ENT: mucous membranes moist, pharynx appears normal Neck: Supple, nontender Respiratory: Clear to auscultation, no signs of respiratory distress Cardiovascular: Normal S1, S2. No murmurs. Normal distal pulses in tibial and radial bilaterally. Abdomen: Soft, nontender, normal active bowel sounds present Musculoskeletal: Normal, Strength/ROM Intact Neurological: A&Ox3, awake and alert, mentation is normal, speech is fluent and appropriate Psychiatric: affect is depressed, does not appear anxious or depressed Triage Information Reviewed: Yes Vital Signs On Initial Exam: Initial Vitals Temp Pulse Resp BP Pulse Ox 99.4 F 103 16 129/92 98 10/09/18 20:18 10/09/18 20:18 10/09/18 20:18 10/09/18 20:18 10/09/18 20:18 Vital Signs Reviewed: Yes Diagnostics - Vital Signs Vital Signs Temp Pulse Resp BP Pulse Ox 10/09/18 20:18 99.4 F 103 16 129/92 98 - Laboratory Result Diagrams: 10/09/18 21:15 10/09/18 21:15 Lab Statement: Any lab studies that have been ordered have been reviewed, and results considered in the medical decision making process. - EKG 2024 Cardiac Rate: NL - 91 BPM EKG Rhythm: Sinus Rhythm Summary of EKG Findings: NSR at [address] elevation, probable normal early repolarization pattern. 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 EKG revealed: NSR at [address] elevation, probable normal early repolarization pattern. In the ED course, patient received Actidose 50GM/ Sorbitol 240 ML, ActidoseAqua, and Zofran. Blood work and UA obtained. Patient is medically cleared for MHE at 0155 on 10/10/18. After MHE, patient will be admitted involuntary status to Dr. Gonzalez, psychiatrist, with dx of unspecified mood disorder. - Diagnoses Provider Diagnoses: Unspecified mood [affective] disorder Discharge - Sign-Out/Discharge Documenting (check all that apply): Patient Departure - Admit Patient Received Moderate/Deep Sedation with Procedure: No - Discharge Plan Condition: Fair Disposition: ADMITTED TO [facility] Referrals: No Primary Care Phys,NOPCP [Primary Care Provider] - - Billing Disposition and Condition Condition: FAIR Disposition: Admitted to [facility] - Attestation Statements Document Initiated by Scribe: Yes Documenting Scribe: Ubaldo Fairbanks Provider For Whom Liliamibe is Documenting (Include Credential): Alex Lowery MD Scribe Attestation: IUbaldo, scribed for Alex Lowery MD on 10/10/18 at 0422. Scribe Documentation Reviewed: Yes Provider Attestation: The documentation as recorded by the Ubaldo jeffries accurately reflects the service I personally performed and the decisions made by me, Alex Lowery MD Status of Scribe Document: Viewed
[2018-10-09 21:21] LABS: ABS Eosinophils 0.2 10^3/ul (0-0.6); ABS Lymphocytes 2.5 10^3/ul (1.0-4.8); ABS Monocytes 0.8 10^3/ul (0-0.8); ABS Neutrophils 6.6 10^3/ul (1.5-7.7); Eosinophil % 1.6 %; Hematocrit 51 % (35-47); Hemoglobin 17.1 g/dL (12.0-16.0); Lymphocyte % 24.4 %; Mean Corpuscular HGB Conc 34 g/dL (31-36); Mean Corpuscular Hemoglobin 32 pg (27-31); Mean Corpuscular Volume 96 fL (80-97); Mean Platelet Volume 8.4 fL (7.4-10.4); Nucleated Red Blood Cells % 0.1; Platelet Count 206 10^3/uL (150-450); Red Blood Count 5.29 10^6 /uL (3.70-4.87); Red Cell Distribution Width 14 % (10.5-15); White Blood Count 10.1 10^3/uL (3.5-10.8)
[2018-10-09 21:33] LABS: Urine Appearance Clear; Urine Bacteria Absent (Absent); Urine Bilirubin Negative (Negative); Urine Blood 1+ (Negative); Urine Color Straw; Urine Glucose Negative (Negative); Urine Ketones Negative (Negative); Urine Nitrite Negative (Negative); Urine Protein Negative (Negative); Urine Red Blood Cell Trace(0-2/hpf) (Absent); Urine Specific Gravity 1.005 (1.010-1.030); Urine Squamous Epithelial Cell Present (Absent); Urine Urobilinogen Negative (Negative); Urine White Blood Cell Trace(0-5/hpf) (Absent)
[2018-10-09 21:39] LABS: ALT 16 U/L (7-52); AST 18 U/L (13-39); Albumin 4.4 g/dL (3.2-5.2); Albumin/Globulin Ratio 1.6 (1-3); Alkaline Phosphatase 44 U/L (34-104); Anion Gap 7 mmol/L (2-11); BUN/Creatinine Ratio 13.6 (8-20); Blood Urea Nitrogen 9 mg/dL (6-24); CO2 Carbon Dioxide 22 mmol/L (22-32); Calcium 9.8 mg/dL (8.6-10.3); Chloride 109 mmol/L (101-111); EGFR Non-African American 109.1 (>60); Globulin 2.7 g/dL (2-4); Glucose 108 mg/dL (70-100); Potassium 3.7 mmol/L (3.5-5.0); Sodium 138 mmol/L (135-145); Total Protein 7.1 g/dL (6.4-8.9)
[2018-10-09 21:46] LABS: HCG Pregnancy < 0.60 mIU/mL
[2018-10-09 22:10] LABS: Acetaminophen < 15 mcg/mL; Alcohol < 10 mg/dL (<10); Salicylate < 2.50 mg/dL (<30)
[2018-10-09 22:12] LABS: Urine Benzodiazepine Screen None Detected (None Detect); Urine Opiates Screen None Detected (None Detect)
[2018-10-10] MEDS ORDERED: Al Hydrox/Mg Hydrox/Simet LIQ* 30 ML UDC PO PRN (05:09)
[2018-10-10] MEDS ORDERED: Acetaminophen TAB* 325 MG PO PRN (05:09)
[2018-10-10] MEDS: Vitamin THERAPEUTIC TAB PO SCH (08:27)
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
[2018-10-10] MEDS ORDERED: Lurasidone(*) 20 MG TAB PO SCH (17:00)
[2018-10-11 08:55] LABS: HDL Cholesterol 47.5 mg/dL
[2018-10-11] MEDS: Vitamin THERAPEUTIC TAB PO SCH (09:52)
[2018-10-11 10:34] VITALS: BP 111/63
--- NOTE | 2018-10-11 13:45 | DS ---
DISCHARGE SUMMARY: DATE OF ADMISSION: 10/10/18 DATE OF DISCHARGE: 10/11/18 DISCHARGE DIAGNOSES: As follows: [place] I: Bipolar disorder type 2. Post traumatic stress disorder by history. [place] II: Borderline personality traits by history. CONDITION AT THE TIME OF DISCHARGE: Stable. The patient continues to deny any suicidal thoughts, plans or intentions. 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 She is also expressing an interest in going back to school at [employer] and getting an education in the [employer] industry. I have spoken with the patient's mother Edith Selby who is agreeable with the discharge plan and is arriving on the unit to provide the patient with transportation home. The patient is very remorseful for her impulsive suicidal gesture. She acknowledges that her 7-year- old daughter needs her and she is denying active symptoms of mental illness at this time. The patient is tolerating her lurasidone well and is agreeable with outpatient followup at the [facility] shortly after discharge from our facility. MENTAL STATUS EXAM: At the time of discharge, the patient is a young female with long hair, pulled back in a ponytail, who was clean, well groomed, dressed in blue paper scrubs. She is calm, cooperative, has good posture, makes good eye contact, is easy to establish a rapport with. Speech has a normal rate, tone, and volume. Mood is euthymic with full affect. Thought process is linear and goal directed. Thought content is significant for her desire to be discharged from the hospital. She is denying suicidal or homicidal ideations. She denies auditory or visual hallucinations. Insight and judgment are fair given her willingness to follow up at the [facility]. Cognitively, she is awake and alert with what would appear to be an average intellect. LABORATORY DATA: Metabolic testing was performed on 10/11/18 revealing hemoglobin A1c of 5.2%, triglycerides 76, cholesterol 189, LDL cholesterol 126, HDL cholesterol 47.5. DISCHARGE INSTRUCTIONS TO THE PATIENT: Are as follows: Part A: Medications: 1. She is on lurasidone 20 mg p.o. daily. 2. Symbicort 80/4.5 two puffs inhaled daily. 3. Albuterol inhaler 1-2 puffs inhaled as a p.r.n. for wheezing. Part B: Diet is regular. Part C: Activities as tolerated. The patient is a smoker who consumes approximately 6 to 8 cigarettes per day. We did offer her continued nicotine replacement therapy; however she is declining this. We have provided her with the [facility] Smokers Quitline at [phone]. There are no laboratory or diagnostic studies pending at the time of discharge. Part D: Followup care: The patient will followup at [facility] with her Therapist Lori on 10/13/18 at 2:30 p.m. She also has a followup appointment with her psychiatric nurse practitioner, Yasmin, at [facility], the appointment is set for Wednesday10/18/18 at 04 :20 p.m. Part E: Substance abuse followup is nonapplicable. Part F: Disposition. The patient is returning to her apartment in [place]. HOSPITAL COURSE: Part A: Reason for admission: The patient is a 23-year-old single female with a history of bipolar disorder, PTSD and borderline personality traits who is actively under the care of [facility], brought to the hospital via ambulance following an episode in which she consumed approximately 49 tablets of 25 mg strength hydroxyzine in front of her mother due to frustration that her mother was being insensitive towards her. 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 She described her mother as a difficult boss and many of her co- workers used to complain about the mother's leadership style to the patient. Since quitting approximately 3 weeks ago, she has not had anything to do during the day causing both the boredom as well as financial stressors. 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 She goes on to state that she would like to take hospitality classes at [employer] and make an actual carrier of this. The patient was quite remorseful for this gesture, she stated that she immediately tried to induce vomiting, but was unable to do so. She denies any further suicidal ideations or wish, stating that she has a 7-year-old daughter to live for. She denies depressed mood or mood instability for the prior 6 months and states that she has been doing quite well recently since resuming treatment with lurasidone. Symptomatically, she denied all neurovegetative symptoms of depression. She also denied psychosis or thoughts of harming others. For collateral information, I reached out to the patient's mother, Edith, who states that she was totally surprised and shocked when she observed Lisset take the overdose. She was unaware of any symptoms or stressors leading up to this event, but does acknowledge that the 2 of them did not always get along well. Part B: Psychiatric treatment rendered: The patient was admitted to the adult behavioral health unit and placed on q.15 minute checks for her own safety. Throughout her hospital course, she strongly denied suicidal ideations and portrayed her overdose as simply a gesture out of frustration with her mother. 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 We continued her lurasidone as currently prescribed in the outpatient setting and reached out to [facility] who reported that the patient is good at making her appointments and has been doing fairly well recently. Followup appointments were established with both the patient's therapist and her psychiatric nurse practitioner at the clinic. At this time, we do not feel that further inpatient treatment would likely benefit the patient much as she is well engaged in outpatient treatment and would like to be treated in a less restrictive setting. Her mother expresses agreement with this. At this time, we are discharging her back to care in the community and we wish her the best for safe and healthy future. [id number]/[facility] #: [id number] DIEGO
== END 2018-10-11 11:20 | disposition home or self-care (01) | DRG 753 ==
LOC: ED 20:12 → BSU 10-10 04:48
PROVIDERS: ADMIT Psychiatry & Neurology Psychiatry; ATTEND Psychiatry & Neurology Psychiatry
DX: F31.81 Bipolar II disorder (principal); F43.10 Post-traumatic stress disorder, unspecified; F17.210 Nicotine dependence, cigarettes, uncomplicated; T43.592A Poisoning by other antipsychotics and neuroleptics, intentional self-harm, initial encounter; Z62.810 Personal history of physical and sexual abuse in childhood; F12.90 Cannabis use, unspecified, uncomplicated; Y92.9 Unspecified place or not applicable; Z79.51 Long term (current) use of inhaled steroids; Z79.899 Other long term (current) drug therapy; Z81.8 Family history of other mental and behavioral disorders
CPT/HCPCS: 36415; 80053; 80061; 80307; 80320; 80329; 81003; 81015; 83036; 83605; 84702; 85025; 87086; 93005; 99222; 99238; 99284; A9270-GY; G0480; J2405